=== PATIENT | male | born 1970 | race African-American/Black ===

== ENCOUNTER 2017-10-06 10:26 | Emergency (ER) | payer MEDICARE, MEDICAID ==
[~2017-10-06] VITALS: Ht 177.8 cm; Wt 78.0 kg
[2017-10-06] MEDS ORDERED: NASOI (10:42)
[2017-10-06] MEDS ORDERED: NIAC750T15 (10:42)
[2017-10-06] MEDS ORDERED: MONT10TA24 (10:42)
[2017-10-06] MEDS ORDERED: CLON1TAB4 (10:42)
[2017-10-06] MEDS ORDERED: OXCA600T20 (10:42)
[2017-10-06 11:15] LABS: HEMOGLOBIN. 16.8 g/dL (14.0-18.0); MEAN CORPUSCULAR HEMOGLOBIN 31.1 pg (28.0-32.0); MEAN CORPUSCULAR VOLUME 90.7 fL (80.0-94.0); MEAN PLATELET VOLUME 8.7 fl (7.4-10.4); PLATELET 237 x1000/uL (130-400); RED BLOOD CELL COUNT 5.41 mill/uL (4.7-6.1); RED CELL DISTRIBUTION WIDTH 13.5 % (11.6-14.6)
[2017-10-06 11:29] LABS: CARBON DIOXIDE 32 mEq/L (21-32); CHLORIDE 97 mEq/L (98-107); ETHANOL BLOOD < 10 mg/dL
[2017-10-06 12:02] LABS: GLUCOSE URINE NEGATIVE (NEGATIVE); KETONES URINE NEGATIVE (NEGATIVE); LEUKOCYTE ESTERASE URINE NEGATIVE (NEGATIVE); NITRITE URINE NEGATIVE (NEGATIVE); OCCULT BLOOD URINE NEGATIVE (NEGATIVE); PH URINE 7.5 (4.5-8.0); PROTEIN URINE NEGATIVE (NEGATIVE); UROBILINOGEN URINE 0.2 E.U./dL (0.2-1.0)
[2017-10-06 12:06] LABS: CLARITY URINE CLEAR (CLEAR); COLOR URINE YELLOW (YELLOW)
[2017-10-06 12:27] LABS: PLATELET ESTIMATE NORMAL
[2017-10-06 13:36] LABS: *AMPHETAMINES SCREEN URINE NEGATIVE (NEGATIVE); *BARBITURATES SCREEN URINE NEGATIVE (NEGATIVE); *BENZODIAZEPINES SCREEN URINE NEGATIVE (NEGATIVE); *COCAINE SCREEN URINE NEGATIVE (NEGATIVE); CANNABINOID URINE SCREEN NEGATIVE (NEGATIVE); METHADONE URINE SCREEN NEGATIVE (NEGATIVE); OPIATES URINE SCREEN NEGATIVE (NEGATIVE); PHENCYCLIDINE URINE SCREEN NEGATIVE (NEGATIVE)
[2017-10-06 14:23] VITALS: BP 145/96
== END 2017-10-06 14:24 | disposition home or self-care (01) ==
LOC: ER 10:42
DX: R10.9 Unspecified abdominal pain (principal); R41.82 Altered mental status, unspecified; I10 Essential (primary) hypertension; K21.9 Gastro-esophageal reflux disease without esophagitis
CPT/HCPCS: 36415; 70450; 71010; 80053; 80305; 81003; 85025; 99285; G0482

== ENCOUNTER → 2022-12-02 | Outpatient (CLI) | payer MEDICARE, MEDICAID ==
[~2022-12-02] MED LIST: BARIUM SULFATE 176 GM SUSP.RECON ONE; BARIUM SULFATE(VOLUMEN) 450 ML ORAL.SUSP ONE; CLON1TAB12; MONT-39; NASOI; NIAC750T15; OXCA600T20
== END | disposition home or self-care (01) ==
LOC: RAD 08:40
PROVIDERS: ATTEND Internal Medicine Gastroenterology
DX: K21.9 Gastro-esophageal reflux disease without esophagitis (principal); I10 Essential (primary) hypertension; R05.3 Chronic cough
CPT/HCPCS: 71046; 74220

== ENCOUNTER → 2024-06-26 | Day surgery (SDC) | payer MEDICARE, MEDICAID ==
[~2024-06-26] VITALS: Ht 174 cm; Wt 108.9 kg
[~2024-06-26] MED LIST changes: +AMLO10TA80 PO; +ATROPINE SULFATE 0.4MG/ML VIAL IV PRN; +BACITRACIN 14GM TUBE TOP ONE; -BARIUM SULFATE 176 GM SUSP.RECON ONE; -BARIUM SULFATE(VOLUMEN) 450 ML ORAL.SUSP ONE; +BERBERINE PO; +BUPIVACAINE HCL/PF 0.5% (5MG/ML) 10ML ONE; +CALC-36 PO; -CLON1TAB12; +CLON1TAB12 PO; +ETOMIDATE 2MG/ML 10ML VIAL IV ONE; +FENTANYL CITRATE/PF 50MCG/ML 5ML VIAL ONE; +GING250C2 PO; +HYDRALAZINE 20MG/ML VIAL IV PRN; +HYDROMORPHONE HCL/PF 1MG/ML INJ IV PRN; +LABETALOL 5MG/ML 4ML INJ IV PRN; +LACTATED RINGERS 1,000 ML IV SCH; +LORA10CA PO; +MULT-622 PO; +NIAC10002 PO; +ONDANSETRON HCL 4MG/2ML INJ IV PRN; -OXCA600T20; +OXCA600T20 PO; +PROPOFOL 200MG/20ML VIAL IV ONE; +ROCURONIUM BROMIDE 10MG/ML VIAL 5ML IV ONE; +SUCCINYLCHOLINE CHLORIDE 200MG/10ML IV ONE; +TUMERIC PO; +UBID100C12 PO
[2024-06-26 06:13] LABS: CLARITY URINE CLEAR (CLEAR); COLOR URINE YELLOW (YELLOW); GLUCOSE URINE NEGATIVE (NEGATIVE); KETONES URINE NEGATIVE (NEGATIVE); LEUKOCYTE ESTERASE URINE NEGATIVE (NEGATIVE); NITRITE URINE NEGATIVE (NEGATIVE); OCCULT BLOOD URINE NEGATIVE (NEGATIVE); PROTEIN URINE NEGATIVE (NEGATIVE); SPECIFIC GRAVITY URINE 1.009 (1.005-1.030); UROBILINOGEN URINE 0.2 E.U./dL (0.2-1.0)
[2024-06-26] MEDS: SODIUM CHLORIDE 0.9% 1,000 ML IV SCH (06:49)
== END | disposition home or self-care (01) ==
LOC: OR 05:32
PROVIDERS: ATTEND Urology
DX: N43.3 Hydrocele, unspecified (principal); N43.0 Encysted hydrocele; I10 Essential (primary) hypertension; G40.909 Epilepsy, unspecified, not intractable, without status epilepticus; Z79.899 Other long term (current) drug therapy; Z98.890 Other specified postprocedural states
CPT/HCPCS: 55060; 81003; 88302; J3010; J3490 ×3; J2704; J0330